=== PATIENT | male | born 1980 | race Caucasian/White ===

== ENCOUNTER 2023-12-04 07:58 | Day surgery (SDC) | payer MEDICARE ==
[2023-12-04] MEDS ORDERED: Sodium Bicarbonate 2.5 MEQ/5 ML SDV ONE (09:10)
[2023-12-04] MEDS ORDERED: Lidocaine 1% PF 5 ML VIAL ONE (09:10)
[2023-12-04] MEDS ORDERED: Iopamidol-M 300 61% 15 ML VIAL ONE (09:56)
[2023-12-04 10:52] VITALS: BP 108/64; TEMP 98.4
== END 2023-12-04 11:30 | disposition home or self-care (01) ==
LOC: CSHRAD 07:58
PROVIDERS: ATTEND Neurological Surgery
PROC: B00BYZZ Plain Radiography of Spinal Cord using Other Contrast (ICD-10-PCS; principal; 2023-12-04)
DX: M47.22 Other spondylosis with radiculopathy, cervical region (principal)
CPT/HCPCS: 62284; 72126; 77003; Q9967